=== PATIENT | female | born 1945 | race Caucasian/White ===

== ENCOUNTER 2019-07-17 08:18 | Emergency (ER) | payer MEDICARE, OTHER ==
[2019-07-17 08:28] VITALS: Wt 72.7 kg
[2019-07-17] MEDS ORDERED: PROTONIX20 MG PO (08:29)
[2019-07-17] MEDS ORDERED: LIPITOR20 MG PO (08:29)
[2019-07-17 08:50] LABS: APPEARANCE CLEAR (CLEAR); BILIRUBIN NEGATIVE (NEGATIVE); COLOR STRAW (YELLOW); GLUCOSE NEGATIVE (NEGATIVE); KETONE NEGATIVE (NEGATIVE); NITRITE NEGATIVE (NEGATIVE); PROTEIN NEGATIVE (NEGATIVE); SPECIFIC GRAVITY 1.015 (1.005-1.020); UROBILINOGEN NORMAL (NORMAL)
[2019-07-17 09:43] LABS: BASOPHILS 0 % (0-2); EOSINOPHILS 0.3 % (0-7); HEMATOCRIT 35.6 % (36.0-48.0); HEMOGLOBIN 12.3 g/dL (12-16); IMMATURE GRANULOCYTES 0.2 % (0-5); LYMPHOCYTES 16.1 % (15-50); MCH 28.7 pg (26.0-34.0); MCHC 34.6 g/dL (31.0-37.0); MEAN PLATELET VOLUME 9.9 fL (7.4-10.4); MONOCYTES 14.6 % (2-11); NEUTROPHILS 68.8 % (40-80); PLATELET COUNT 188 10x3/uL (130-400); RBC 4.29 10x6/uL (4.00-5.40); RDW 12.9 % (11.5-14.5)
[2019-07-17 09:57] LABS: ALBUMIN 2.9 g/dL (3.4-5.0); ANION GAP 14.2 mmol/L (8-16); BILIRUBIN - TOTAL 0.35 mg/dL (0.2-1.3); CALCIUM 8.6 mg/dL (8.5-10.1); CARBON DIOXIDE 24.8 mmol/L (21.0-32.0); CREATININE - SERUM 0.9 mg/dL (0.6-1.3); MAGNESIUM - SERUM 1.6 mg/dL (1.8-2.4); PROTEIN - SERUM 6.7 g/dL (6.4-8.2)
[2019-07-17] MEDS ORDERED: LEVAQUIN750 MG PO (10:19)
[2019-07-17 10:21] VITALS: BP 120/72
[2019-07-18] MEDS ORDERED: LEXAPRO20 MG PO (12:28)
[2019-07-18] MEDS ORDERED: PREDNISONE20 MG PO (14:10)
[2019-07-18] MEDS ORDERED: ALBUTEROL SULF8.5 GM INH (14:10)
[2019-07-18] MEDS ORDERED: OMNICEF300 MG PO (14:10)
== END 2019-07-17 10:21 | disposition home or self-care (01) ==
LOC: D.ER 08:18
PROVIDERS: Emergency Medicine
DX: R50.9 Fever, unspecified (principal); E83.42 Hypomagnesemia

== ENCOUNTER 2019-07-18 12:22 | Emergency (ER) | payer MEDICARE, OTHER ==
[~2019-07-18] VITALS: Ht 160 cm; Wt 76.4 kg
[~2019-07-18 12:22] MED LIST: LEVAQUIN750 MG PO; LIPITOR20 MG PO; PROTONIX20 MG PO
[2019-07-18 12:26] VITALS: Ht 160 cm; Wt 76.4 kg
[2019-07-18] MEDS ORDERED: LEXAPRO20 MG PO (12:28)
[2019-07-18] MEDS ORDERED: OMNICEF300 MG PO (14:10)
[2019-07-18] MEDS ORDERED: PREDNISONE20 MG PO (14:10)
[2019-07-18] MEDS ORDERED: ALBUTEROL SULF8.5 GM INH (14:10)
[2019-07-18 14:39] VITALS: BP 139/63
== END 2019-07-18 14:40 | disposition home or self-care (01) ==
LOC: D.ER 12:22
DX: L50.9 Urticaria, unspecified (principal); R91.8 Other nonspecific abnormal finding of lung field

== ENCOUNTER → 2019-08-05 11:44 | Outpatient (CLI) | payer MEDICARE, OTHER ==
[2019-07-18 12:26] VITALS: BMI 29.8
[~2019-08-05 11:44] MED LIST changes: +ALBUTEROL SULF8.5 GM INH; +LEXAPRO20 MG PO; +OMNICEF300 MG PO; +PREDNISONE20 MG PO
== END | disposition home or self-care (01) ==
LOC: D.RAD 11:44
PROVIDERS: ATTEND Nurse Practitioner Family
DX: J18.9 Pneumonia, unspecified organism (principal)

== ENCOUNTER 2021-04-02 16:32 | Emergency (ER) | payer MEDICARE, OTHER ==
[~2021-04-02] VITALS: Ht 160 cm; Wt 77.3 kg
[2021-04-02 16:44] VITALS: BP 152/50; Ht 160 cm; Wt 77.3 kg
[2021-04-02] MEDS ORDERED: HYDROCODON-ACE1 EAC7 PO (18:22)
== END 2021-04-02 19:15 | disposition home or self-care (01) ==
LOC: D.ER 16:32
DX: S62.304A Unspecified fracture of fourth metacarpal bone, right hand, initial encounter for closed fracture (principal); M79.641 Pain in right hand; W19.XXXA Unspecified fall, initial encounter; Y93.9 Activity, unspecified; Y92.9 Unspecified place or not applicable